=== PATIENT | female | born 1955 | race Caucasian/White ===

== ENCOUNTER → 2024-02-20 16:19 | Outpatient (REF) | payer MEDICARE, OTHER, SELFPAY | LOC: WDC 16:19 | DX: Z12.31 Encounter for screening mammogram for malignant neoplasm of breast (principal) | CPT/HCPCS: 77063; 77067 ==

== ENCOUNTER → 2024-04-18 10:47 | Outpatient (REF) | payer MEDICARE, OTHER, SELFPAY | LOC: WDC 10:47 | PROVIDERS: ATTENDING PHYSICIAN Internal Medicine | DX: R92.2 Inconclusive mammogram (principal); R92.30 Dense breasts, unspecified | CPT/HCPCS: 76641 ==